=== PATIENT | male | born 1960 | race Caucasian/White ===

== ENCOUNTER 2018-05-18 02:35 | Inpatient (IN) | payer BC ==
[~2018-05-18] VITALS: Ht 170.2 cm; Wt 99.0 kg
[2018-05-18] MEDS ORDERED: SODIUM CHLOR 0.9% 1000 ML INJ 1,000 ML IV ONE ×2 (02:45)
[2018-05-18] MEDS ORDERED: SODIUM CHLORIDE 0.9% FLUSH 10 ML FLUSH IVF PRN (02:45)
[2018-05-18] MEDS ORDERED: DIPHTH/TETANUS/ACEL PERTUSSIS (BOOSTER) 0.5 ML VIAL/PFS IM ONE (02:45)
[2018-05-18] MEDS ORDERED: ceFAZolin 2 GM PREMIX 100 ML IV ONE (02:45)
[2018-05-18] MEDS ORDERED: ceFAZolin 2 GM PREMIX 50 ML ONE (02:51)
[2018-05-18] MEDS ORDERED: MORPHINE SULFATE 8 MG/ML INJ IV PUSH ONE ×2 (03:00→05:15)
[2018-05-18 03:07] LABS: AUTOMATED NEUTROPHIL # 7.1 TH/MM3 (1.8-7.7); BASOPHIL # 0.1 TH/MM3 (0-0.2); BASOPHIL % 0.7 % (0.0-2.0); EOSINOPHIL # 0.6 TH/MM3 (0-0.4); EOSINOPHIL % 5.7 % (0.0-4.0); HEMATOCRIT 44.4 % (39.0-51.0); LYMPH % 21.5 % (9.0-44.0); LYMPHOCYTE # 2.3 TH/MM3 (1.0-4.8); MEAN CORPUSCULAR HEMOGLOBIN 31.7 PG (27.0-34.0); MEAN CORPUSCULAR HGB CONC 33.7 % (32.0-36.0); MONO % 5.6 % (0.0-8.0); MONOCYTE # 0.6 TH/MM3 (0-0.9); NEUT % 66.5 % (16.0-70.0); PLATELET COUNT 295 TH/MM3 (150-450); RED BLOOD COUNT 4.73 MIL/MM3 (4.50-5.90); RED CELL DISTRIBUTION WIDTH 14.1 % (11.6-17.2); WHITE BLOOD COUNT 10.6 TH/MM3 (4.0-11.0)
[2018-05-18] MEDS ORDERED: IOHEXOL 350 MG/ML 10 ML VIAL (for RAD DIAG) IVCONTRAST ONE (03:10)
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
[2018-05-18 03:21] LABS: PROTHROMBIN TIME - PATIENT 9.9 SEC (9.8-11.6)
[2018-05-18 03:26] LABS: CALCIUM 8.4 MG/DL (8.5-10.1); CREATININE 0.95 MG/DL (0.60-1.30)
--- NOTE | 2018-05-18 03:29 | RADRPT ---
EXAM DATE: 05/18/2018 2:54 AM EDT AGE/SEX: 57 years / Male INDICATIONS: Trauma alert. Fall. CLINICAL DATA: This is the patient's initial encounter. Patient reports that signs and symptoms have been present for 1 day and indicates a pain score of Nonresponsive. MEDICAL/SURGICAL HISTORY: Non-responsive. Non-responsive. COMPARISON: No prior exams available for comparison. FINDINGS: A single AP view of the chest demonstrates the lungs to be symmetrically aerated without evidence of mass, infiltrate or effusion. The cardiomediastinal contours are unremarkable. Osseous structures a re intact. CONCLUSION: No acute cardiopulmonary disease Electronically signed by: Kip Pierce MD 05/18/2018 3:27 AM EDT
--- NOTE | 2018-05-18 03:29 | RADRPT ---
EXAM DATE: 05/18/2018 3:12 AM EDT AGE/SEX: 57 years / Male INDICATIONS: Trauma. Fall. CLINICAL DATA: This is the patient's initial encounter. Patient reports that signs and symptoms have been present for 1 day and indicates a pain score of Nonresponsive. MEDICAL/SURGICAL HISTORY: Non-responsive. Non-responsive. RADIATION DOSE: 54.16 CTDI (mGy) COMPARISON: No prior exams available for comparison. TECHNIQUE: CT of the head without contrast. Using automated exposure control and adjustment of the mA and/or kV according to patient size, radiation dose was kept as low as reasonably achievable to ob tain optimal diagnostic quality images. FINDINGS: Cerebrum: The ventricles are normal for age. No evidence of midline shift, mass lesion, hemorrhage or acute infarction. No extraaxial fluid collections are seen. Posterior Fossa: The cerebellum and brainstem are intact. The 4th ventricle is midline. The cerebe llopontine angle is unremarkable. Extracranial: The visualized portion of the orbits is intact. Skull: The calvaria is intact. No evidence of skull fracture. CONCLUSION: 1. No acute intracranial abnormality Electronically signed by: Kip Pierce MD 05/18/2018 3:28 AM EDT
--- NOTE | 2018-05-18 03:31 | RADRPT ---
EXAM DATE: 05/18/2018 3:20 AM EDT AGE/SEX: 57 years / Male INDICATIONS: Trauma. Fall. CLINICAL DATA: This is the patient's initial encounter. Patient reports that signs and symptoms have been present for 1 day and indicates a pain score of Nonresponsive. MEDICAL/SURGICAL HISTORY: Non-responsive. Non-responsive. RADIATION DOSE: 24.88 CTDI (mGy) COMPARISON: No prior exams available for comparison. TECHNIQUE: Contiguous axial images were obtained using helical multirow detector technique. The vol umetric data was post-processed with multiplanar reconstruction in oblique axial, sagittal, and coron al planes. Using automated exposure control and adjustment of the mA and/or kV according to patient s ize, radiation dose was kept as low as reasonably achievable to obtain optimal diagnostic quality alphonse ges. FINDINGS: Vertebrae: Normal vertebral body height. Prominent degenerative changes C3-C7. No fracture. Alignment: Normal. No subluxation. C2-3: The bony spinal canal is normal in size. No evidence of disc bulge or herniation. The neural foramina are bilaterally patent. C3-4: Posterior disc osteophyte complex and bilateral neural foraminal narrowing. No canal stenosis. . C4-5: The bony spinal canal is normal in size. No evidence of disc bulge or herniation. The neural foramina are bilaterally patent. C5-6: Posterior disc osteophyte complex and bilateral neural foraminal narrowing. No canal stenosis. C6-7: Posterior disc osteophyte complex and bilateral neural foraminal narrowing. No canal stenosis. C7-T1: The bony spinal canal is normal in size. No evidence of disc bulge or herniation. The neura l foramina are bilaterally patent. CONCLUSION: 1. Degenerative changes without fracture. Electronically signed by: Kip Pierce MD 05/18/2018 3:30 AM EDT
--- NOTE | 2018-05-18 03:33 | RADRPT ---
EXAM DATE: 05/18/2018 3:21 AM EDT AGE/SEX: 57 years / Male INDICATIONS: Trauma; fall. CLINICAL DATA: This is the patient's initial encounter. Patient reports that signs and symptoms have been present for 1 day and indicates a pain score of Nonresponsive. MEDICAL/SURGICAL HISTORY: Non-responsive. Non-responsive. ORAL CONTRAST: No oral contrast ingested. RADIATION DOSE: 14.80 CTDI (mGy) ; Combined studies COMPARISON: No prior exams available for comparison. TECHNIQUE: Multiple contiguous axial images were obtained through the abdomen and pelvis following b olus infusion of 95 ml Omnipaque 350 (iohexol) nonionic water-soluble contrast as a cumulative dose for multiple exams. No oral contrast ingested. Using automated exposure control and adjustment of t he mA and/or kV according to patient size, the radiation dose was kept as low as reasonably achievabl e to obtain optimal diagnostic quality images. FINDINGS: Lower Lungs: The visualized lower lungs are clear. Liver: The liver has a homogeneous density without space-occupying lesion. There is no dilation of th e biliary tree. Spleen: Homogeneous density without enlargement. Pancreas: Unremarkable without mass or calcification. Kidneys: Normal in size and shape. No evidence of mass or hydronephrosis. Left renal cyst. Adrenal Glands: Unremarkable. Aorta: The aorta and proximal iliac vessels are grossly unremarkable without aneurysmal dilation. Bowel/Mesentery: The bowel loops are grossly unremarkable. The cecum and sigmoid colon have a normal configuration. Small hiatal hernia. Abdominal Wall: Intact. Retroperitoneum: No evidence of adenopathy in the retrocrural, para-aortic, or deep pelvic regions. Bladder: Contours are smooth. Reproductive Organs: No abnormal masses or calcifications seen. Inguinal: The inguinal region is unremarkable without evidence of adenopathy. Bony Structures: Unremarkable. CONCLUSION: 1. No abdominal visceral injury Electronically signed by: Kip Pierce MD 05/18/2018 3:31 AM EDT
--- NOTE | 2018-05-18 03:40 | RADRPT ---
EXAM DATE: 05/18/2018 3:35 AM EDT AGE/SEX: 57 years / Male INDICATIONS: Trauma; fall. CLINICAL DATA: This is the patient's initial encounter. Patient reports that signs and symptoms have been present for 1 day and indicates a pain score of Nonresponsive. MEDICAL/SURGICAL HISTORY: Non-responsive. Non-responsive. RADIATION DOSE: 14.80 CTDI (mGy) ; Combined studies COMPARISON: No prior exams available for comparison. TECHNIQUE: Multiple contiguous axial images were obtained through the chest during bolus infusion of 95 ml Omnipaque 350 (iohexol) nonionic water-soluble contrast as a cumulative dose for multiple exa ms. Images were obtained in suspended respiration using multiple row detector helical technique. U sing automated exposure control and adjustment of the mA and/or kV according to patient size, radiati on dose was kept as low as reasonably achievable to obtain optimal diagnostic quality images. FINDINGS: Lungs: The lungs are symmetrically aerated. No infiltrates or nodular densities are seen. Mediastinum: There is good visualization of the great vessels of the middle mediastinum. No evidenc e of mediastinal or hilar adenopathy/mass. Pleurae: No evidence of focal thickening or pleural effusion. Axillae: Unremarkable. Bony Structures: Old right-sided rib fractures. Miscellaneous: The examination was extended to include the upper abdomen, and both adrenal glands ar e normal in size and configuration. CONCLUSION: 1. No acute thoracic injury. Electronically signed by: Kip Pierce MD 05/18/2018 3:39 AM EDT
--- NOTE | 2018-05-18 03:40 | RADRPT ---
EXAM DATE: 05/18/2018 3:38 AM EDT AGE/SEX: 57 years / Male INDICATIONS: Trauma; fall. CLINICAL DATA: This is the patient's initial encounter. Patient reports that signs and symptoms have been present for 1 day and indicates a pain score of Nonresponsive. MEDICAL/SURGICAL HISTORY: Non-responsive. Non-responsive. RADIATION DOSE: . CTDI (mGy) ; Reconstructed from previous dataset, no dose COMPARISON: No prior exams available for comparison. TECHNIQUE: Contiguous axial images were acquired using a multirow detector CT scanner after intraven ous administration of 95 ml Omnipaque 350 (iohexol) nonionic water-soluble contrast as a cumulative dose for multiple exams. Multiplanar reconstruction in the sagittal and coronal planes was performe d. Using automated exposure control and adjustment of the mA and/or kV according to patient size, ra diation dose was kept as low as reasonably achievable to obtain optimal diagnostic quality images. FINDINGS: Vertebrae: Normal vertebral body height. Degenerative changes. Anterior endplate osteophytes at mult iple levels. Alignment: Normal. No subluxation. Post Contrast: No abnormal areas of enhancement are seen in the cord, dural or paraspinal regions. T1 - T2: Normal. T2 - T3: The thecal sac has a normal diameter. No evidence of disc bulge or protrusion. T3 - T4: The thecal sac has a normal diameter. No evidence of disc bulge or protrusion. T4 - T5: The thecal sac has a normal diameter. No evidence of disc bulge or protrusion. T5 - T6: The thecal sac has a normal diameter. No evidence of disc bulge or protrusion. T6 - T7: The thecal sac has a normal diameter. No evidence of disc bulge or protrusion. T7 - T8: The thecal sac has a normal diameter. No evidence of disc bulge or protrusion. T8 - T9: The thecal sac has a normal diameter. No evidence of disc bulge or protrusion. T9 - T10: The thecal sac has a normal diameter. No evidence of disc bulge or protrusion. T10 - T11: The thecal sac has a normal diameter. No evidence of disc bulge or protrusion. T11 - T12: The thecal sac has a normal diameter. No evidence of disc bulge or protrusion. T12 - L1: The thecal sac has a normal diameter. No evidence of disc bulge or protrusion. CONCLUSION: 1. No acute fracture or subluxation. Electronically signed by: Kip Pierce MD 05/18/2018 3:39 AM EDT
--- NOTE | 2018-05-18 03:42 | RADRPT ---
EXAM DATE: 05/18/2018 3:35 AM EDT AGE/SEX: 57 years / Male INDICATIONS: Trauma; fall. CLINICAL DATA: This is the patient's initial encounter. Patient reports that signs and symptoms have been present for 1 day and indicates a pain score of Nonresponsive. MEDICAL/SURGICAL HISTORY: Non-responsive. Non-responsive. RADIATION DOSE: . CTDI (mGy) ; Reconstructed from previous dataset, no dose COMPARISON: No prior exams available for comparison. TECHNIQUE: Contiguous axial images were acquired with a multirow detector CT scanner after intraveno us administration of 95 ml Omnipaque 350 (iohexol) nonionic water-soluble contrast as a cumulative d ose for multiple exams. Multiplanar reconstructions in the sagittal and coronal plane were also perf ormed. Using automated exposure control and adjustment of the mA and/or kV according to patient size, radiation dose was kept as low as reasonably achievable to obtain optimal diagnostic quality images. FINDINGS: Vertebrae: Normal vertebral body height. Alignment: Normal. No subluxation. Post Contrast: No abnormal areas of enhancement are seen in the cord, dural or paraspinal regions. T12-L1: The thecal sac has a normal diameter. No evidence of disc bulge or protrusion. The neural foramina are patent bilaterally. L1-L2: The thecal sac has a normal diameter. No evidence of disc bulge or protrusion. The neural f oramina are patent bilaterally. L2-L3: The thecal sac has a normal diameter. No evidence of disc bulge or protrusion. The neural f oramina are patent bilaterally. L3-L4: The thecal sac has a normal diameter. No evidence of disc bulge or protrusion. The neural f oramina are patent bilaterally. L4-L5: Small central protrusion abuts the ventral thecal sac without canal stenosis. The neural for josh are patent bilaterally. L5-S1: The thecal sac has a normal diameter. No evidence of disc bulge or protrusion. The neural f oramina are patent bilaterally. CONCLUSION: 1. No fracture or subluxation. 2. Small central protrusion at L4-5 without canal stenosis. Electronically signed by: Kip Pierce MD 05/18/2018 3:40 AM EDT
--- NOTE | 2018-05-18 03:43 | RADRPT ---
EXAM DATE: 05/18/2018 3:40 AM EDT AGE/SEX: 57 years / Male INDICATIONS: Trauma due to fall. CLINICAL DATA: This is the patient's initial encounter. Patient reports that signs and symptoms have been present for 1 day and indicates a pain score of Nonresponsive. MEDICAL/SURGICAL HISTORY: Non-responsive. Non-responsive. COMPARISON: No prior exams available for comparison. FINDINGS: Views of the right foot demonstrates comminuted fracture of the calcaneus with mild loss of height. N o other definite fractures. Soft tissue swelling. CONCLUSION: Comminuted fracture of the calcaneus with mild loss of height Electronically signed by: Kip Pierce MD 05/18/2018 3:42 AM EDT
--- NOTE | 2018-05-18 03:43 | RADRPT ---
EXAM DATE: 05/18/2018 3:41 AM EDT AGE/SEX: 57 years / Male INDICATIONS: Trauma due to fall. CLINICAL DATA: This is the patient's initial encounter. Patient reports that signs and symptoms have been present for 1 day and indicates a pain score of Nonresponsive. MEDICAL/SURGICAL HISTORY: Non-responsive. Non-responsive. COMPARISON: No prior exams available for comparison. FINDINGS: Bony structures are intact and in normal alignment. Osseous density is normal. Soft tissues are unre markable. No radiopaque foreign bodies seen. CONCLUSION: No acute fracture left foot Electronically signed by: Kip Pierce MD 05/18/2018 3:42 AM EDT
--- NOTE | 2018-05-18 03:44 | RADRPT ---
EXAM DATE: 05/18/2018 3:42 AM EDT AGE/SEX: 57 years / Male INDICATIONS: Trauma due to fall. CLINICAL DATA: This is the patient's initial encounter. Patient reports that signs and symptoms have been present for 1 day and indicates a pain score of Nonresponsive. MEDICAL/SURGICAL HISTORY: Non-responsive. Non-responsive. COMPARISON: No prior exams available for comparison. FINDINGS: Bony structures are intact and in normal alignment. Joints are intact without dislocation or signifi cant arthropathy. Osseous density is normal. Soft tissues are unremarkable. No radiopaque foreign bodies seen. CONCLUSION: No acute fracture left knee. Electronically signed by: Kip Pierce MD 05/18/2018 3:43 AM EDT
--- NOTE | 2018-05-18 03:45 | RADRPT ---
EXAM DATE: 05/18/2018 3:43 AM EDT AGE/SEX: 57 years / Male INDICATIONS: Trauma due to fall. CLINICAL DATA: This is the patient's initial encounter. Patient reports that signs and symptoms have been present for 1 day and indicates a pain score of Nonresponsive. MEDICAL/SURGICAL HISTORY: Non-responsive. Non-responsive. COMPARISON: No prior exams available for comparison. FINDINGS: Bony structures are intact and in normal alignment. Joints are intact without dislocation or signifi cant arthropathy. Osseous density is normal. Soft tissues are unremarkable. No radiopaque foreign bodies seen. CONCLUSION: No acute fracture right knee Electronically signed by: Kip Pierce MD 05/18/2018 3:44 AM EDT
[2018-05-18 03:58] VITALS: BP 124/75; PULSE 99; RESP 16; O2SAT 98
[2018-05-18] MEDS ORDERED: LIDOCAINE 1%/EPINEPHrine 1:100,000 SOLN 50 ML VIAL INFIL ONE (04:15)
--- NOTE | 2018-05-18 04:49 | PD ---
Data Data Orders Orders Basic Metabolic Panel (Bmp) (05/18/18 02:37) Complete Blood Count With Diff (05/18/18 02:37) Prothrombin Time / Inr (Pt) (05/18/18 02:37) Act Partial Throm Time (Ptt) (05/18/18 02:37) Type And Screen (05/18/18 02:37) Alcohol (Ethanol) (05/18/18 02:37) Urinalysis - C+S If Indicated (05/18/18 02:37) Drug Screen, Random Urine (05/18/18 02:37) Chest, Single Ap (05/18/18 02:37) Ct Brain W/O Iv Contrast(Rout) (05/18/18 02:37) Ct Cerv Spine W/O Contrast (05/18/18 02:37) Ct Abd/Pel W Iv Contrast(Rout) (05/18/18 02:37) Ct Thorax/ Chest W Iv Contrast (05/18/18 02:37) Ct Thor Spine W Iv Contrast (05/18/18 02:37) Ct Lumb Spine W Iv Contrast (05/18/18 02:37) Iv Access Insert/Monitor (05/18/18 02:37) Ecg Monitoring (05/18/18 02:37) Oximetry (05/18/18 02:37) Oxygen Administration (05/18/18 02:37) Cefazolin 2 Gm Premix (Ancef 2 Gm Premix (05/18/18 02:45) Bzjh-Vmr-Xyduji (Booster) Inj (Boostrix (05/18/18 02:45) Sodium Chloride 0.9% Flush (Ns Flush) (05/18/18 02:45) Foot, Complete (Yag3rvs) (05/18/18 ) Foot, Complete (Iyx9wcf) (05/18/18 ) Knee, Complete (4vws) (05/18/18 ) Knee, Complete (4vws) (05/18/18 ) Sodium Chlor 0.9% 1000 Ml Inj (Ns 1000 M (05/18/18 02:45) Sodium Chlor 0.9% 1000 Ml Inj (Ns 1000 M (05/18/18 02:45) Morphine Inj (Morphine Inj) (05/18/18 03:00) Cefazolin 2 Gm Premix (Ancef 2 Gm Premix (05/18/18 02:51) I-Stat Profile (05/18/18 02:37) Remove Cervical Collar (05/18/18 03:34) Iohexol 350 Inj (Omnipaque 350 Inj) (05/18/18 03:10) Consult Podiatry (05/18/18 ) Admit Order (Ed Use Only) (05/18/18 ) Labs Laboratory Tests Test 05/18/18 02:40 White Blood Count 10.6 TH/MM3 Red Blood Count 4.73 MIL/MM3 Hemoglobin 15.0 GM/DL Bedside Hemoglobin 15.0 G/DL Hematocrit 44.4 % Bedside Hematocrit 44.0 % Mean Corpuscular Volume 94.0 FL Mean Corpuscular Hemoglobin 31.7 PG Mean Corpuscular Hemoglobin Concent 33.7 % Red Cell Distribution Width 14.1 % Platelet Count 295 TH/MM3 Mean Platelet Volume 8.0 FL Neutrophils (%) (Auto) 66.5 % Lymphocytes (%) (Auto) 21.5 % Monocytes (%) (Auto) 5.6 % Eosinophils (%) (Auto) 5.7 % Basophils (%) (Auto) 0.7 % Neutrophils # (Auto) 7.1 TH/MM3 Lymphocytes # (Auto) 2.3 TH/MM3 Monocytes # (Auto) 0.6 TH/MM3 Eosinophils # (Auto) 0.6 TH/MM3 Basophils # (Auto) 0.1 TH/MM3 CBC Comment DIFF FINAL Differential Comment Prothrombin Time 9.9 SEC Prothromb Time International Ratio 1.0 RATIO Activated Partial Thromboplast Time 24.1 SEC Bedside Sodium 142 MMOL/L Blood Urea Nitrogen 9 MG/DL Creatinine 0.95 MG/DL Random Glucose 112 MG/DL Calcium Level 8.4 MG/DL Sodium Level 142 MEQ/L Potassium Level 4.1 MEQ/L Chloride Level 108 MEQ/L Carbon Dioxide Level 23.0 MEQ/L Bedside Potassium 4.1 MMOL/L Bedside Chloride 107 MMOL/L Anion Gap 11 MEQ/L Bedside Blood Urea Nitrogen 9 MG/DL Bedside Creatinine 1.0 MG/DL Estimat Glomerular Filtration Rate 81 ML/MIN Bedside Glucose 118 MG/DL Ethyl Alcohol Level 119 MG/DL [facility] Medical Record Reviewed: Yes Supervised Visit with EMERITA: No Narrative Course This patient presents with a laceration to the left heel which I was asked to repair. He verbally consents. Procedures Procedure Narrative LACERATION LOCATION: Left heel LENGTH: 10 cm NUMBER OF STITCHES/CARLOS: 12 REPAIR: The area of the laceration was prepped with Betadine and sterilely draped. The laceration was infiltrated with 1% lidocaine with epinephrine. The wound was copiously irrigated and explored without evidence of foreign body , tendon injury or neurovascular injury. The wound was closed using 3-0 nylon simple interrupted this was a single layer repair. A sterile dressing was applied. The patient was advised to keep the dressing clean and dry. Patient tolerated the procedure well. Diagnosis Primary Impression: Right calcaneal fracture Qualified Codes: S92.011A - Displaced fracture of body of right calcaneus, initial encounter for closed fracture Additional Impression: Laceration of foot Qualified Codes: S91.312A - Laceration without foreign body, left foot, initial encounter Condition: Stable Nik Mckeon May 18, 2018 04:49
--- NOTE | 2018-05-18 05:34 | RADRPT ---
EXAM DATE: 05/18/2018 5:06 AM EDT AGE/SEX: 57 years / Male INDICATIONS: Trauma; fall. CLINICAL DATA: This is the patient's initial encounter. Patient reports that signs and symptoms have been present for 1 day and indicates a pain score of Nonresponsive. MEDICAL/SURGICAL HISTORY: Non-responsive. Non-responsive. RADIATION DOSE: 7.38 CTDI (mGy) COMPARISON: No prior exams available for comparison. TECHNIQUE: Multiple contiguous axial images were acquired using a multirow detector CT scanner witho ut contrast. Multiplanar reconstruction was performed in the sagittal and coronal planes. Using auto mated exposure control and adjustment of the mA and/or kV according to patient size, radiation dose w as kept as low as reasonably achievable to obtain optimal diagnostic quality images. FINDINGS: Bones: Extensive comminuted fracture of the calcaneus with slight loss of height. Displacement of po sterior fragments. No other fracture. Talus is intact. Joints: No significant arthropathy or bony hypertrophy is seen. Soft Tissues: No soft tissue mass is seen. Other: No foreign bodies seen. CONCLUSION: 1. Comminuted fracture calcaneus Electronically signed by: Kip Pierce MD 05/18/2018 5:32 AM EDT
[2018-05-18] MEDS ORDERED: CHLORHEXIDINE GLUCONATE 2 % 1 PACK (2 CLOTHS) TOPICAL PRN (06:45)
[2018-05-18] MEDS ORDERED: POVIDONE IODINE 5% (ANTISEPSIS KIT) 4 APPLICATIONS EACH NARE PRN (06:45)
[2018-05-18] MEDS ORDERED: LACTATED RINGER'S 1000 ML IV PRN (06:45)
[2018-05-18] MEDS ORDERED: SODIUM CHLORID 0.9% 500 ML IV PRN (06:45)
[2018-05-18 06:48] VITALS: BP 132/73; PULSE 90; RESP 22; TEMP 98; O2SAT 99
[2018-05-18 08:00] VITALS: BP 128/64; PULSE 93; RESP 18; TEMP 98.2; O2SAT 97
[2018-05-18] MEDS ORDERED: NURSING INFORMATION XX SCH (08:15)
[2018-05-18] MEDS ORDERED: SODIUM CHLORIDE 0.9% FLUSH 10 ML FLUSH IV FLUSH PRN (08:15)
[2018-05-18] MEDS ORDERED: CHLORHEXIDINE GLUCONATE 2 % 1 PACK (2 CLOTHS) TOP PRN (08:15)
[2018-05-18] MEDS ORDERED: ENALAPRILAT 1.25 MG/ML VIAL IV PUSH PRN (08:15)
[2018-05-18] MEDS ORDERED: ONDANSETRON ODT 4 MG TAB PO PRN (08:15)
[2018-05-18] MEDS ORDERED: ACETAMINOPHEN/HYDROcodone 325 MG/5 MG TAB PO PRN ×2 (08:15)
[2018-05-18] MEDS: MAGNESIUM HYDROXIDE SUSP 30 ML CUP PO SCH ×2 (08:32→20:52)
[2018-05-18] MEDS: DOCUSATE SODIUM 100 MG CAP PO SCH ×2 (08:32→20:52)
[2018-05-18] MEDS: FAMOTIDINE 20 MG TAB PO SCH ×2 (08:32→20:52)
[2018-05-18] MEDS ORDERED: SODIUM CHLOR 0.9% 1000 ML INJ 1,000 ML IV SCH (09:00)
[2018-05-18] MEDS: MORPHINE SULFATE 4 MG/ML INJ IV PUSH PRN ×2 (09:00→20:53)
[2018-05-18] MEDS: MULTIVITAMIN INJ 10 ML, THIAMINE INJ 100 MG, FOLIC ACID INJ 1 MG in SODIUM CHLORID 0.9%... IV SCH (10:00)
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
[2018-05-18] MEDS ORDERED: oxyCODONE/ACETAMINOPHEN 5 MG/325 MG TAB PO PRN (11:30)
[2018-05-18 12:00] VITALS: BP 147/89; PULSE 91; RESP 18; TEMP 98.3; O2SAT 100
[2018-05-18] MEDS: GABAPENTIN 300 MG CAP PO SCH ×2 (12:51→16:57)
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
[2018-05-18] MEDS: oxyCODONE/ACETAMINOPHEN 10 MG/325 MG TAB PO PRN ×3 (12:52→20:52)
[2018-05-18] MEDS ORDERED: DOCU1CAP39 PO (14:50)
[2018-05-18] MEDS ORDERED: MAGN30S PO (14:50)
[2018-05-18] MEDS ORDERED: WALKER WHEELS/F1 MIS (14:52)
[2018-05-18 16:00] VITALS: BP 153/72; PULSE 80; RESP 20; TEMP 98.5; O2SAT 98
[2018-05-18] MEDS: ENOXAPARIN SODIUM 40 MG/0.4 ML SYRINGE SQ SCH (16:58)
[2018-05-18 20:22] VITALS: BP 149/89; PULSE 106; RESP 18; TEMP 98.3; O2SAT 98
[2018-05-19] VITALS (7 sets, daily range): BP systolic 125–153; BP diastolic 65–87; PULSE 83–103; RESP 16–18; TEMP 97.4–99.3; O2SAT 95–98
[2018-05-19] MEDS: oxyCODONE/ACETAMINOPHEN 10 MG/325 MG TAB PO PRN ×5 (00:43→21:04)
[2018-05-19] MEDS ORDERED: CHLORHEXIDINE GLUCONATE 2 % 1 PACK (2 CLOTHS) TOP SCH (04:00)
[2018-05-19] MEDS: MORPHINE SULFATE 4 MG/ML INJ IV PUSH PRN ×4 (06:20→23:34)
[2018-05-19] MEDS: FAMOTIDINE 20 MG TAB PO SCH ×2 (07:41→20:11)
[2018-05-19] MEDS: DOCUSATE SODIUM 100 MG CAP PO SCH ×2 (07:41→20:11)
[2018-05-19] MEDS: GABAPENTIN 300 MG CAP PO SCH ×3 (07:41→17:17)
[2018-05-19] MEDS: MULTIVITAMIN INJ 10 ML, THIAMINE INJ 100 MG, FOLIC ACID INJ 1 MG in SODIUM CHLORID 0.9%... IV SCH (07:56)
[2018-05-19] MEDS: MAGNESIUM HYDROXIDE SUSP 30 ML CUP PO SCH ×2 (07:59→20:13)
--- NOTE | 2018-05-19 08:16 | HHI.PR ---
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 Objective Vital Signs Date Time Temp Pulse Resp B/P (MAP) Pulse Ox O2 Delivery O2 Flow Rate FiO2 05/19/18 03:14 97.4 87 18 153/77 (102) 95 05/19/18 00:54 99.2 91 18 125/65 (85) 97 05/18/18 20:22 98.3 106 18 149/89 (109) 98 05/18/18 16:00 98.5 80 20 153/72 (99) 98 05/18/18 12:00 98.3 91 18 147/89 (108) 100 05/18/18 08:00 98.2 93 18 128/64 (85) 97 I/O 05/18/18 05/18/18 05/18/18 05/19/18 05/19/18 05/19/18 07:00 15:00 23:00 07:00 15:00 23:00 Intake Total 511.2 ml 480 ml Balance 511.2 ml 480 ml Intake Oral 480 ml IV Total 511.2 ml # Voids 1 1 2 # Bowel Movements 0 Result Diagram: 05/18/18 0240 05/18/18 0240 Imaging Last 72 hours Impressions [address]acic Spine CT 05/18/18236 Signed Impressions: CONCLUSION: 1. No acute fracture or subluxation. Lumbar Spine CT 05/18/18236 Signed Impressions: CONCLUSION: 1. No fracture or subluxation. 2. Small central protrusion at L4-5 without canal stenosis. Head CT 05/18/18236 Signed Impressions: CONCLUSION: 1. No acute intracranial abnormality Chest X-Ray 05/18/18236 Signed Impressions: CONCLUSION: No acute cardiopulmonary disease Chest CT 05/18/18236 Signed Impressions: CONCLUSION: 1. No acute thoracic injury. Cervical Spine CT 05/18/18236 Signed Impressions: CONCLUSION: 1. Degenerative changes without fracture. Abdomen/Pelvis CT 05/18/18236 Signed Impressions: CONCLUSION: 1. No abdominal visceral injury Lower Extremity CT 05/18/18 0000 Signed Impressions: CONCLUSION: 1. Comminuted fracture calcaneus Knee X-Ray 05/18/18 Signed Impressions: CONCLUSION: No acute fracture right knee Knee X-Ray 6/17/18 0000 Signed Impressions: CONCLUSION: No acute fracture left knee. Foot X-Ray 05/18/18 0000 Signed Impressions: CONCLUSION: Comminuted fracture of the calcaneus with mild loss of height Foot X-Ray 05/18/18 0000 Signed Impressions: CONCLUSION: No acute fracture left foot Objective Remarks A and O x3 NAD non labored respirations mild distress due to pain Left LE: bandage intact with minimal strike through, good ROM of toes foot and ankle, pulses palpable, sensation intact Right LE: severe edema early fracture blisters, able to move toes, no obvious signs of compartment syndrome, hindfoot is diffusely tender. no open wounds, dorsalis pedis intact, hard to palpate posterior tibialis. Medications and IVs Administered Medications Medications (Trade) Dose Ordered Sig/Ermelinda Route PRN Reason Start Time Stop Time Status Last Admin Dose Admin Morphine Sulfate (Morphine Inj) 3 mg Q3H PRN IV PUSH BREAKTHROUGH PAIN 05/18/18 08:15 05/19/18 07:42 Multivitamins 10 ml/Thiamine HCl 100 mg/Folic Acid 1 mg/Sodium Chloride 511.2 ml @ 125 mls/hr Q24H IV 05/18/18 10:00 05/20/18 14:06 05/18/18 10:00 Docusate Sodium (Colace) 100 mg BID PO 05/18/18 09:00 05/19/18 07:41 Magnesium Hydroxide (Milk Of Magnesia Liq) 30 ml BID PO 05/18/18 09:00 05/18/18 20:52 Famotidine (Pepcid) 20 mg BID PO 05/18/18 09:00 05/19/18 07:41 Oxycodone/ Acetaminophen (Percocet 10-325 Mg) 1 tab Q4H PRN PO pain 6-10 05/18/18 11:30 05/19/18 06:23 Gabapentin (Neurontin) 300 mg TID PO 05/18/18 13:00 05/19/18 07:41 Enoxaparin Sodium (Lovenox Inj) 40 mg Q24H SQ 05/18/18 17:00 05/18/18 16:58 Assessment and Plan Problem List: (1) Right calcaneal fracture ICD Codes: S92.001A - Unspecified fracture of right calcaneus, initial encounter for closed fracture Status: Acute (2) Laceration of foot ICD Codes: S91.319A - Laceration without foreign body, unspecified foot, initial encounter Status: Acute Assessment and Plan Right foot calcaneal fracture needs ORIF however way too much swelling currently , continue compression wrapping/ cold wrap. Will check tomorrow to see if improved. May need to wait a few days- possibly a week before soft tissue envelope is ready for surgery. I did discuss possible DC and following up out pt for surgery if can not be done in a few days. Patient wishes to discuss with girlfriend first. Left heel laceration- wound check in a few days. Added Toradol for break through pain. Problem Qualifiers (1) Right calcaneal fracture: Qualified Codes: S92.011A - Displaced fracture of body of right calcaneus, initial encounter for closed fracture (2) Laceration of foot: Qualified Codes: S91.312A - Laceration without foreign body, left foot, initial encounter Akbar Álvarez DPM May 19, 2018 08:16
[2018-05-19] MEDS: KETOROLAC TROMETHAMINE 30 MG/ML (IVP) VIAL IV PUSH PRN (09:57)
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
[2018-05-19] MEDS: ENOXAPARIN SODIUM 40 MG/0.4 ML SYRINGE SQ SCH (17:19)
--- NOTE | 2018-05-19 23:15 | EKG ---
Date Performed: 05/18/2018 Time Performed: 13:26:16 PTAGE: 57 years EKG: Sinus rhythm POSSIBLE LEFT ATRIAL ENLARGEMENT BORDERLINE ECG NO PREVIOUS TRACING DOCTOR: Omar Heredia Interpretating Date/Time 05/19/2018 23:02:33
[2018-05-20] VITALS: BP 131/73; PULSE 90; RESP 18; TEMP 99.1; O2SAT 94
[2018-05-20 00:45] VITALS: BP 109/59; PULSE 83; RESP 18; TEMP 98.5; O2SAT 96
[2018-05-20] MEDS: KETOROLAC TROMETHAMINE 30 MG/ML (IVP) VIAL IV PUSH PRN (01:21)
[2018-05-20] MEDS: oxyCODONE/ACETAMINOPHEN 10 MG/325 MG TAB PO PRN ×3 (01:24→13:07)
[2018-05-20] MEDS: MORPHINE SULFATE 4 MG/ML INJ IV PUSH PRN (05:12)
[2018-05-20 08:00] VITALS: BP 130/74; PULSE 97; RESP 16; TEMP 98.3; O2SAT 100
[2018-05-20] MEDS: DOCUSATE SODIUM 100 MG CAP PO SCH ×2 (08:22→21:52)
[2018-05-20] MEDS: MAGNESIUM HYDROXIDE SUSP 30 ML CUP PO SCH ×2 (08:22→21:52)
[2018-05-20] MEDS: GABAPENTIN 300 MG CAP PO SCH ×3 (08:22→17:37)
[2018-05-20] MEDS: FAMOTIDINE 20 MG TAB PO SCH ×2 (08:22→21:52)
[2018-05-20 12:00] VITALS: BP 138/72; PULSE 81; RESP 16; TEMP 98.7; O2SAT 99
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
[2018-05-20] MEDS: MULTIVITAMIN INJ 10 ML, THIAMINE INJ 100 MG, FOLIC ACID INJ 1 MG in SODIUM CHLORID 0.9%... IV SCH (12:53)
--- NOTE | 2018-05-20 15:04 | HHI.PR ---
Subjective Remarks Left foot with no much pain, right foot with significant pain but appears improved since yesterday, used housekeeper supervisor via computer to communicate Objective Vital Signs Date Time Temp Pulse Resp B/P (MAP) Pulse Ox O2 Delivery O2 Flow Rate FiO2 05/20/18 12:00 98.7 81 16 138/72 (94) 99 05/20/18 08:00 98.3 97 16 130/74 (92) 100 05/20/18 00:45 98.5 83 18 109/59 (76) 96 05/20/18 00:00 99.1 90 18 131/73 (92) 94 05/19/18 20:00 98.5 90 18 127/74 (91) 96 05/19/18 17:50 97 21 05/19/18 16:00 98.2 85 16 127/87 (100) 97 I/O 05/19/18 05/19/18 05/19/18 05/20/18 05/20/18 05/20/18 07:00 15:00 23:00 07:00 15:00 23:00 Intake Total 480 ml 480 ml 360 ml Output Total 900 ml Balance 480 ml 480 ml -540 ml Intake Oral 480 ml 480 ml 360 ml Output Urine Total 900 ml # Voids 2 2 # Bowel Movements 0 0 Result Diagram: 05/18/18 0240 05/18/18 0240 Objective Remarks A and O x3 NAD non labored respirations mild distress due to pain Left LE: Approximately 4 cm laceration of posterior heel well coapted with sutures intact no signs of infection good ROM of toes foot and ankle, pulses palpable, sensation intact Right LE: severe edema early fracture blisters, able to move toes, no obvious signs of compartment syndrome, hindfoot is diffusely tender. no open wounds, dorsalis pedis intact, hard to palpate posterior tibialis. Assessment and Plan Problem List: (1) Right calcaneal fracture ICD Codes: S92.001A - Unspecified fracture of right calcaneus, initial encounter for closed fracture Status: Acute (2) Laceration of foot ICD Codes: S91.319A - Laceration without foreign body, unspecified foot, initial encounter Status: Acute Assessment and Plan Left heel was dressed with Betadine swab and bandage. Right foot continues to have massive swelling no obvious signs of compartment syndrome however not enough progress for surgical incision.. Reviewed with housekeeper supervisor and by phone, patient will need surgery once the swelling comes down to correct the calcaneus. Patient wishes to go home for 7- 10 days and follow-up with a orthopedic surgeon or foot and ankle specialist/ podiatry for correction in [place]. Physical therapy will evaluate for transfer wheelchair weight-bear, the patient needs anticoagulation for DVT prophylaxis reviewed case with trauma team nurse. Splint to be reapplied. Problem Qualifiers (1) Right calcaneal fracture: Qualified Codes: S92.011A - Displaced fracture of body of right calcaneus, initial encounter for closed fracture (2) Laceration of foot: Qualified Codes: S91.312A - Laceration without foreign body, left foot, initial encounter Akbar Álvarez DPM May 20, 2018 15:04
[2018-05-20] MEDS ORDERED: WHEEMIS3 (15:14)
[2018-05-20] MEDS ORDERED: TRANSFER BENCH1 MIS (15:14)
[2018-05-20] MEDS ORDERED: COMMODE PAIL WI1 MIS (15:14)
[2018-05-20] MEDS ORDERED: NEUR300C PO (15:26)
[2018-05-20] MEDS ORDERED: OXYC1TAB35 PO (15:26)
[2018-05-20] MEDS ORDERED: XARE10TA PO (15:26)
--- NOTE | 2018-05-20 15:35 | HHI.FF ---
Face to Face Verification Diagnosis: (1) Laceration of foot (2) Right calcaneal fracture Physical Therapy Order: Evaluate and Treat, Improve ambulation, Strength and gait training Occupational Therapy Order: Evaluate and Treat Home Health Nursing Order: Medical education Signs/symptoms of disease process Medication education-adverse effect Wound care and dressing changes (Assess LLE suture line - wash daily with soap and water and cover if desire. ) Nursing assessment with vital signs I have seen patient Ramiro Cole on 05/20/18. My clinical findings support the need for the requested home health care services because: Ltd mobility - disease progression Limited ability to care for self High risk of falls Infection w/ risk of complications I certify that my clinical findings support that this patient is homebound because: Post-op weakness Unsteady gait/balance Unsafe to leave home unassisted [id number] bed/chair Unable to use public transportation Gayle Parsons May 20, 2018 15:35
[2018-05-20] MEDS: ENOXAPARIN SODIUM 40 MG/0.4 ML SYRINGE SQ SCH (16:24)
[2018-05-20] MEDS: oxyCODONE/ACETAMINOPHEN 7.5 MG/325 MG TAB PO PRN ×2 (16:26→21:53)
[2018-05-20] MEDS: KETOROLAC TROMETHAMINE 30 MG/ML (IVP) VIAL IV PUSH SCH (17:37)
[2018-05-20 23:50] VITALS: BP 117/67; PULSE 86; RESP 17; TEMP 98.6; O2SAT 96
[2018-05-21] MEDS: KETOROLAC TROMETHAMINE 30 MG/ML (IVP) VIAL IV PUSH SCH ×3 (00:06→11:20)
[2018-05-21 04:45] VITALS: BP 145/81; PULSE 96; RESP 18; TEMP 98.1; O2SAT 94
[2018-05-21] MEDS: oxyCODONE/ACETAMINOPHEN 7.5 MG/325 MG TAB PO PRN ×3 (05:04→14:32)
[2018-05-21 08:00] VITALS: BP 111/63; PULSE 80; RESP 16; TEMP 98.1; O2SAT 94
[2018-05-21] MEDS: FAMOTIDINE 20 MG TAB PO SCH (10:41)
[2018-05-21] MEDS: DOCUSATE SODIUM 100 MG CAP PO SCH (10:41)
[2018-05-21] MEDS: GABAPENTIN 300 MG CAP PO SCH ×2 (10:41→14:27)
[2018-05-21] MEDS: MAGNESIUM HYDROXIDE SUSP 30 ML CUP PO SCH (10:48)
[2018-05-21 12:00] VITALS: BP 115/59; PULSE 83; RESP 16; TEMP 99.1; O2SAT 98
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
[2018-05-21 16:00] VITALS: BP 142/68; PULSE 81; RESP 16; TEMP 98.3; O2SAT 99
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
== END 2018-05-21 16:50 | disposition home health service (06) | DRG 563 ==
LOC: NEPE 02:35 → NEDA 03:52 → N06B 06:15
PROVIDERS: ADMIT Surgery; ATTEND Surgery
PROC: 0HQNXZZ Repair Left Foot Skin, External Approach (ICD-10-PCS; principal; 2018-05-18)
DX: S92.011A Displaced fracture of body of right calcaneus, initial encounter for closed fracture (principal); S91.312A Laceration without foreign body, left foot, initial encounter; W13.0XXA Fall from, out of or through balcony, initial encounter; Y92.59 Other trade areas as the place of occurrence of the external cause; F10.129 Alcohol abuse with intoxication, unspecified; Y90.5 Blood alcohol level of 100-119 mg/100 ml
CPT/HCPCS: 70450; 71045; 71260; 72125; 72129; 72132; 73564; 73630; 73700; 74177; 80048; 80307; 85025; 85610; 85730; 86850; 86900; 86901; 87641; 90715; 93005; 94150; J0690; J1650; J1885; J2270; J3411; J7030; J7040; Q9967